=== PATIENT | male | born 1945 | race Caucasian/White ===

== ENCOUNTER 2017-04-22 08:58 | Outpatient (CLI) | payer MEDICARE, OTHER ==
--- NOTE | 2017-04-22 13:17 | ULT ---
ABDOMINAL AORTIC ULTRASOUND: Date: 04/22/17 COMPARISON: None. HISTORY: Evaluate for abdominal aortic aneurysm. TECHNIQUE: Multiplanar Nielson scale sonographic imaging of the abdominal aorta is obtained. Images include color f low and spectral analysis. FINDINGS: The proximal abdominal aorta is partially obscured by bowel gas. Transverse imaging demonstrates the proximal abdominal aorta to measure up to 2.1 x 1.8 cm, the mid abdominal aorta measures up to 2.1 x 1.6 cm, and the distal abdominal aorta measures up to 1.8 x 1.6 cm. No evidence for abdominal aortic aneurysm. IMPRESSION: No sonographic evidence of abdominal aortic aneurysm. POS: [facility]
== END 2017-04-22 08:59 | disposition home or self-care (01) ==
LOC: ULT 08:58
PROVIDERS: ATTEND Family Medicine
DX: Z13.6 Encounter for screening for cardiovascular disorders (principal); Z00.00 Encounter for general adult medical examination without abnormal findings
CPT/HCPCS: 76775